=== PATIENT | male | born 1965 | race Caucasian/White ===

== ENCOUNTER 2023-12-17 07:15 | Emergency (ER) | payer OTHER, SELFPAY ==
[2023-12-17] VITALS (9 sets, daily range): BP systolic 176–225; BP diastolic 94–116; PULSE 65–76; RESP 13–19; TEMP 37; O2SAT 95–98; BMI 25.7
--- NOTE | ~2023-12-17 | CT_ITS ---
EXAMINATION: CT HEAD WITHOUT CONTRAST CLINICAL INFORMATION: Headache. Hypertension. Vision changes. COMPARISON: None available. TECHNIQUE: Contiguous axial imaging was performed from the skull base to vertex without intravenous administration of contrast. This CT examination was performed using dose optimization techniques as appropriate, variously including the following: *Automated exposure control *Adjustment of mA and/or kV according to patient size (this includes techniques or standardized protocols for targeted exams where dose is matched to indication/reason for exam; i.e. extremities or head) *Use of iterative reconstruction technique DLP: 708 mGy-cm FINDINGS: There is no evidence of acute intracranial hemorrhage or territorial infarction. No mass effect or midline shift is seen. Bravo to white matter differentiation is preserved. No extra-axial fluid collections are identified. No hydrocephalus. The osseous structures and soft tissues are intact. The mastoid air cells are clear and well aerated. There is complete opacification of the frontal sinuses, ethmoid air cells and right sphenoid sinus. There is mucosal thickening of bilateral maxillary sinuses. CT/CT head/brain wo IV con IMPRESSION: No acute intracranial pathology. Marked pansinus disease.
--- NOTE | 2023-12-17 07:22 | ECG_ITS ---
Test Reason : HYPERTENSION Blood Pressure : / mmHG Vent. Rate : 065 BPM Atrial Rate : 065 BPM P-R Int : 156 ms QRS Dur : 090 ms QT Int : 398 ms P-R-T Axes : 018 -04 020 degrees QTc Int : 413 ms Normal sinus rhythm Normal ECG No previous ECGs available Referred By: Generic ED Physician Electronically Signed By:JAYSON BAEZA
--- NOTE | 2023-12-17 07:51 | ED_ITS ---
HPI - General Adult General Chief complaint: General Medical Stated complaint: high BP Time Seen by Provider: 12/17/23 07:26 Source: patient Mode of arrival: ambulatory Limitations: no limitations History of Present Illness ED Provider: BLANCA SANDOVAL narrative: 58 yo male with PMH of HTN but has not been on medications and has not seen a doctor in 6 to 8 years who notes for the past 4 days he has a mild headache, dizziness, blurry vision and feels like he is floating. He had his BP taken yesterday and it was over 200. He has not had his BP checked in a long time. He has no chest pain/dyspnea. He denies drug use. He notes he has not felt like this before. MD complaint: HTN Onset (ago): unknown Location: head Radiation: non-radiation Severity: mild and moderate Quality: aching, dull and constant Pain Consistency: constant Relieving factors: none Exacerbating factors: none Associated symptoms: other (lightheaded, fuzzy vision) Treatments prior to arrival: none Related Data Previous Rx's ?Medication ?Instructions ?Recorded lisinopril 10 mg tablet 10 mg PO DAILY #30 tabs 12/17/23 Allergies Allergy/AdvReac Type Severity Reaction Status Date / Time No Known Allergies Allergy Verified 12/17/23 07:21 Review of Systems 2 Review of Systems: Constitutional : No Fever, No Chills, No Fatigue ENT/Mouth : No sore throat, No Rhinorrhea Eyes: No Eye Pain, No Swelling, No Redness, pos vision changes Cardiovascular : No Chest Pain, No SOB, No Dyspnea on Exertion Respiratory : No Cough, No Sputum Gastrointestinal : No Nausea, No Vomiting, No Diarrhea, No abdominal Pain Genitourinary : No Dysuria, No Urinary Frequency, No Hematuria, Musculoskeletal : No joint pain, No Myalgias, No Joint Swelling Skin : No Skin Lesions, No rash Neuro : No Weakness, No Numbness, pos Dizziness, positive Headache All other systems reviewed and are negative [facility] Past Medical History Attestation statement: The following information was validated with the patient. Source: old records reviewed Medical History HTN (hypertension) Social History Social History Patient Tobacco Use Status: Never used Tobacco Smoked in Last 30 Days: Yes Use of substances other than those prescribed or required for medical reasons: No Advance Directives: No Physical Exam ED Vital Signs: Vital Signs - 24 hr 12/17/23 07:18 12/17/23 07:50 12/17/23 08:13 Pulse Rate 65 76 Respiratory Rate 16 13 Blood Pressure 203/113 H 225/116 H 214/116 H Pulse Oximetry 98 98 Oxygen Delivery Method Room Air Room Air 12/17/23 08:15 12/17/23 08:44 12/17/23 08:47 Pulse Rate 72 69 69 Respiratory Rate Blood Pressure 214/116 H 205/100 H 205/100 H Pulse Oximetry 96 Oxygen Delivery Method Room Air 12/17/23 10:00 Pulse Rate 69 Respiratory Rate 19 Blood Pressure 176/95 H Pulse Oximetry 97 Oxygen Delivery Method Room Air BMI result Body Mass Index 25.7 Appearance: Alert. Oriented X3. No acute distress. Eyes: Pupils equal, round and reactive to light. ENT: Pharynx normal. Neck: Normal inspection. Neck supple. CVS: Normal heart rate and rhythm. Pulses normal. Respiratory: No respiratory distress. Breath sounds normal. Abdomen: Soft and nontender. Skin: Skin warm and dry. Normal skin color. Normal skin turgor. Extremities: No lower extremity edema. No calf ttp Neuro: Oriented X 3. No motor deficit. No sensory deficit. Medications Administered Discontinued Medications Generic Name Dose Route Start Last Admin Trade Name Freq PRN Reason Stop Dose Admin Labetalol HCl 10 mg 12/17/23 08:07 12/17/23 08:15 Labetalol Hcl 100 Mg/20 Ml Vial IVPUSH 12/17/23 08:08 10 mg ONCE ONE Administration Labetalol HCl 10 mg 12/17/23 08:45 12/17/23 08:47 Labetalol Hcl 100 Mg/20 Ml Vial IVPUSH 12/17/23 08:46 10 mg ONCE ONE Administration Medical Decision Making Medical Decision Making MDM Narrative: 58 yo male with PMH of HTN not on medications here with uncontrolled HTN and headaches/blurry vision feeling lightheaded at this time will need basic labs, EKG, CT head for signs of stroke though has no neurologic deficits at this time will recheck BP and likely start on labetalol. Differential Diagnosis Differential Diagnoses: The differential diagnosis associated with the presentation includes uncontrolled HTN, HTN emergency Admission/Observation Consideration of admission/observation: Escalation of care including admission/observation considered BP down symptoms resolved does not want to stay stable for DC Lab Data MDM Lab Attestation statement: I reviewed the patient's lab results. 12/17/23 08:04 12/17/23 08:04 Labs: Lab Results 12/17/23 Range/Units 08:04 WBC 9.0 (4.8-10.8) X10*3/uL RBC 5.12 (4.60-5.80) X10*6/uL Hgb 15.8 (14.0-18.0) g/dl Hct 45.2 (42.0-52.0) % MCV 88.3 (80.0-98.0) fL MCH 30.9 (27.0-33.0) pg MCHC 35.0 (31.0-36.0) g/dl RDW 13.2 (11.0-16.0) % Plt Count 250 (160-400) X10*3/uL MPV 9.4 (9.4-12.4) fL Immature Gran % (Auto) 0.3 (0.0-0.4) % Neut % (Auto) 59.5 (45-73) % Lymph % (Auto) 31.4 (20-40) % [place]lin % (Auto) 7.2 (2-11) % Eos % (Auto) 1.3 (0-4) % Baso % (Auto) 0.3 (0-2) % Lymph # (Auto) 2.8 (1.2-4.9) X10*3/uL [place] # (Auto) 0.7 (0.1-1.2) X10*3/uL Eos # (Auto) 0.1 (0.0-0.4) X10*3/uL Baso # (Auto) 0.0 (0.0-0.2) X10*3/uL Abs Immat Gran (auto) 0.03 (0.00-0.03) X10*3/uL Absolute Neuts (auto) 5.3 (2.0-8.3) x10*3/uL Absolute Nucleated RBC 0.000 (0.0-0.012) X10*3/uL Nucleated RBC % (auto) 0.0 (0.0-0.2) /100WBC Sodium 138 (135-145) mmol/L Potassium 4.2 (3.3-5.1) mmol/L Chloride 107 (96-108) mmol/L Carbon Dioxide 24 (22-29) mmol/L Anion Gap 11 L (12-20) BUN 19 H (9-16) mg/dL Creatinine 1.27 (0.5-1.4) mg/dL Estim Creat Clear Calc 65.4 Estimated GFR 58 Random Glucose 96 (60-115) mg/dL Calcium 9.9 (8.4-10.2) mg/dL Independent Interpretation I performed an independent interpretation of an: EKG and CT Scan (no stroke) Interpretation: Rate: 65 Rhythm: NSR [place]: left Normal P waves. Normal JOEY. Normal QRS complex. ST T wave : no ROLAN, normal qTC: 413 prior studies: no acute ischemia The study has been interpreted contemporaneously by me. . Radiology Impression Discussion of test interpretation with radiology: I have reviewed the radiologist's reading. Prescription Management I considered prescription management with: Other Discharge Plan Discharge Clinical Impression: Hypertension, uncontrolled Patient Disposition: Home, Self-Care Instructions: Chronic Hypertension (ED) Additional Instructions: follow up with doctor next week return for worsening weakness, numbness, severe headache, chest pain or any other concerns return for any lip swelling, oral swelling start lisinopril tomorrow Prescriptions: New lisinopril 10 mg tablet 10 mg PO DAILY Qty: 30 0RF Print Language: [place]uran
[2023-12-17 08:08] LABS: MANUAL DIFF FLAG NO
--- NOTE | 2023-12-17 08:09 | PC.NURSE ---
patient arrives ambulatory with steady gait through external triage, states for the last few days he has felt off as if my head is floating . patient BP noted to be elevated over 200 SBP. denies any hx of HTN. states he has not been to the doctor in a while due to difficulty getting appointments, states he tried to get in earlier this week and they couldnt see him, his friends at work took his BP and advised that he go to the ER. patient denies headaches, states when he coughs there is 'an intense pressure behind my eyes patient speaking in clear and complete sentences, neuros in tact, denies any chest pain or shortness of breath, denies any swelling to lower extremities. patient vital signs otherwise within normal limits. 18g PIV placed in RAC. patient adjusted in bed for comfort.
[2023-12-17 08:10] LABS: Basophils Percent Auto 0.3 % (0-2); Eosinophils Absolute Auto 0.1 X10*3/uL (0.0-0.4); Eosinophils Percent Auto 1.3 % (0-4); Hematocrit 45.2 % (42.0-52.0); Hemoglobin 15.8 g/dl (14.0-18.0); Imm Gran Abs Auto 0.03 X10*3/uL (0.00-0.03); Imm Gran Pct Auto 0.3 % (0.0-0.4); Lymphocytes Absolute Auto 2.8 X10*3/uL (1.2-4.9); Lymphocytes Percent Auto 31.4 % (20-40); Mean Corpuscular Hemoglobin 30.9 pg (27.0-33.0); Mean Corpuscular Volume 88.3 fL (80.0-98.0); Mean Platelet Volume 9.4 fL (9.4-12.4); Monocytes Absolute Auto 0.7 X10*3/uL (0.1-1.2); Monocytes Percent Auto 7.2 % (2-11); Neutrophils Absolute Auto 5.3 x10*3/uL (2.0-8.3); Neutrophils Percent Auto 59.5 % (45-73); Platelet Count 250 X10*3/uL (160-400); Red Blood Count 5.12 X10*6/uL (4.60-5.80); Red Cell Distribution Width 13.2 % (11.0-16.0)
[2023-12-17] MEDS: Labetalol HCL 100 MG/20 ML VIAL 10 MG IVPUSH ×2 (08:15→08:47)
[2023-12-17 08:23] LABS: Anion Gap 11 (12-20); Blood Urea Nitrogen 19 mg/dL (9-16); Calcium 9.9 mg/dL (8.4-10.2); Carbon Dioxide 24 mmol/L (22-29); Chloride 107 mmol/L (96-108); Creatinine Clr Calc Pharmacy 65.4; Estimated Glomerular Filt Rate 58; Glucose Random 96 mg/dL (60-115); Potassium 4.2 mmol/L (3.3-5.1); Sodium 138 mmol/L (135-145)
[2023-12-17] MEDS: lisinopriL 10 MG TABLET PO (11:15)
== END 2023-12-17 11:15 | disposition home or self-care (01) ==
PROVIDERS: Emergency Provider Emergency Medicine; PCP Internal Medicine
DX: R51.9 Headache, unspecified (principal); I10 Essential (primary) hypertension; H53.9 Unspecified visual disturbance; R42 Dizziness and giddiness; Z79.899 Other long term (current) drug therapy
CPT/HCPCS: 36415; 70450; 80048; 85025; 93005; 96374; 96376; 99284; 99285; J1920

== ENCOUNTER → 2023-12-17 07:22 | Outpatient (BNV) | payer OTHER, SELFPAY | PROVIDERS: Emergency Provider Emergency Medicine; PCP Internal Medicine; Visit Provider Internal Medicine | DX: I10 Essential (primary) hypertension (principal) | CPT/HCPCS: 93010 ==